=== PATIENT | male | born 1950 | race Caucasian/White ===

== ENCOUNTER → 2016-08-02 | Outpatient (CLI) | payer OTHER ==
[~2016-08-02] MED LIST: ASPIRIN325 PO; MOBIC15 MG PO; NEURONTIN 300300 M1 PO; ZANTAC 150MG T150 M1 PO
== END ==
LOC: MRI 10:15
DX: S83.282A Other tear of lateral meniscus, current injury, left knee, initial encounter (principal); M25.562 Pain in left knee